=== PATIENT | male | born 1985 | race Caucasian/White ===

== ENCOUNTER 2017-01-30 23:17 | Emergency (ER) | payer SELFPAY ==
[2017-01-30 23:46] VITALS: BP 128/71; PULSE 122; BMI 29.0
[2017-01-31] MEDS ORDERED: ACETAMINOPHEN 325 MG TABLET (FP) ONE (00:08)
[2017-01-31] MEDS ORDERED: ACETAMINOPHEN 500 MG TABLET (FP) PO ONE (00:24)
[2017-01-31] MEDS ORDERED: IBUPROFEN 600 MG TABLET (FP) PO ONE ×2 (00:39→01:11)
--- NOTE | 2017-01-31 00:45 | PDOC ---
History of Present Illness - General History Source: Patient, Old Records Exam Limitations: No Limitations - History of Present Illness Initial Comments: 01/31/17 01:12 31 year old male with no past medical history presents with coughing and fever x 4 days. Denies sick contacts or recent travels. The patient started to developing coughing with yellowish sputum. Has not taken any medications. Has had tactile fevers at home. Also complaining of sore throat. <Colin Quiroga - Last Filed: 01/31/17 01:12> - General History Source: Patient Exam Limitations: No Limitations <Mathew Meehan - Last Filed: 01/31/17 01:33> - General Chief Complaint: Cold Symptoms Stated Complaint: COLD SYMPTOMS Time Seen by Provider: 01/31/17 00:17 Past History <Colin Quiroga - Last Filed: 01/31/17 01:12> - Past Medical History Other medical history: denies - Psycho/Social/Smoking Cessation Hx Suicidal Ideation: No Smoking History: Never smoked <Mathew Meehan - Last Filed: 01/31/17 01:33> - Past Medical History Allergies/Adverse Reactions: Allergies Allergy/AdvReac Type Severity Reaction Status Date / Time No Known Allergies Allergy Verified 01/30/17 23:43 Home Medications: Ambulatory Orders Albuterol Sulfate Inhaler - [Ventolin HFA Inhaler -] 2 inh PO Q4H PRN #1 inh 09/09 Azithromycin 250 mg PO DAILY #4 tablet 01/31/17 Ibuprofen 600 mg PO Q6H PRN #20 tablet 01/31/17 Review of Systems - Review of Systems Able to Perform ROS?: Yes Comments:: 01/31/17 01:12 GENERAL/CONSTITUTIONAL: (+) fever. No chills. No weakness. HEAD, EYES, EARS, NOSE AND THROAT: No change in vision. No ear pain or discharge. No sore throat. CARDIOVASCULAR: No chest pain or shortness of breath. RESPIRATORY: (+) cough. No wheezing, or hemoptysis. GASTROINTESTINAL: No nausea, vomiting, diarrhea or constipation. GENITOURINARY: No dysuria, frequency, or change in urination. MUSCULOSKELETAL: No joint or muscle swelling or pain. No neck or back pain. SKIN: No rash NEUROLOGIC: No headache, vertigo, loss of consciousness, or change in strength/ sensation. ENDOCRINE: No increased thirst. No abnormal weight change. HEMATOLOGIC/LYMPHATIC: No anemia, easy bleeding, or history of blood clots. ALLERGIC/IMMUNOLOGIC: No hives or skin allergy. <Colin Quiroga - Last Filed: 01/31/17 01:12> *Physical Exam - Vital Signs Last Vital Signs Temp Pulse Resp BP Pulse Ox 101 F H 122 H 20 128/71 96 01/31/17 01:01 01/30/17 23:43 01/30/17 23:43 01/30/17 23:43 01/30/17 23:43 - Physical Exam Comments: 01/31/17 01:13 GENERAL: Awake, alert, and fully oriented, in no acute distress HEAD: No signs of trauma EYES: PERRLA, EOMI, sclera anicteric, conjunctiva clear ENT: Auricles normal inspection, hearing grossly normal, nares patent, oropharynx clear without exudates. Moist mucosa NECK: Normal ROM, supple, no lymphadenopathy, JVD, or masses LUNGS: Breath sounds equal, clear to auscultation bilaterally. No wheezes, and no crackles HEART: Regular rate and rhythm, normal S1 and S2, no murmurs, rubs or gallops ABDOMEN: Soft, nontender, normoactive bowel sounds. No guarding, no rebound. No masses EXTREMITIES: Normal range of motion, no edema. No clubbing or cyanosis. No cords, erythema, or tenderness NEUROLOGICAL: Cranial nerves II through XII grossly intact. Normal speech, normal gait SKIN: (+) Warm to touch, Dry, normal turgor, no rashes or lesions noted. <Colin Quiroga - Last Filed: 01/31/17 01:12> - Vital Signs Last Vital Signs Temp Pulse Resp BP Pulse Ox 102.6 F H 122 H 20 128/71 96 01/30/17 23:43 01/30/17 23:43 01/30/17 23:43 01/30/17 23:43 01/30/17 23:43 <Mathew Meehan - Last Filed: 01/31/17 01:33> ED Treatment Course - Medications Given in the ED: ED Medications Discontinued Medications Generic Name Dose Route Start Last Admin Trade Name Freq PRN Reason Stop Dose Admin Acetaminophen 975 mg 01/31/17 00:24 01/31/17 00:24 Tylenol - PO 01/31/17 00:25 975 mg NOW ONE Administration <Colin Quiroga - Last Filed: 01/31/17 01:12> - RADIOLOGY Radiology Studies Ordered: Category Date Time Status CHEST PA & LAT [RAD] Stat Radiology 01/31/17 00:04 Ordered - Medications Given in the ED: ED Medications Discontinued Medications Generic Name Dose Route Start Last Admin Trade Name Freq PRN Reason Stop Dose Admin Acetaminophen 975 mg 01/31/17 00:24 01/31/17 00:24 Tylenol - PO 01/31/17 00:25 975 mg NOW ONE Administration <Mathew Meehan - Last Filed: 01/31/17 01:33> Medical Decision Making - Medical Decision Making 01/31/17 00:39 A portion of this note was documented by scribe services under my direction. I have reviewed the details of the note, within reason, and agree with the documentation with the following case summary and management plan written by me. Patient treated in the ED. Nursing notes are reviewed and incorporated into the medical decision-making. Vital signs reviewed. Peripheral IV access obtained by the nurse, laboratory studies are drawn and sent, reviewed and interpreted by myself. Vital Signs Temp Pulse Resp BP Pulse Ox 102.6 F H 122 H 20 128/71 96 01/30/17 23:43 01/30/17 23:43 01/30/17 23:43 01/30/17 23:43 01/30/17 23:43 31 year old male with no past medical history presents with coughing and fever x 4 days. Denies sick contacts or recent travels. The patient started to developing coughing with yellowish sputum. Has not taken any medications. Has had tactile fevers at home. Also complaining of sore throat. Differential includes bronchitis, pneumonia, influenza. Oropharynx has no physical findings. I doubt strep at this time. Centaur score: 0 Otherwise, he is nontoxic appearing. Will consider azithromycin. 01/31/17 01:27 Influenza negative. Chest xray reviewed by me, pending official radiology read. No infiltrates. Will treat as bronchitis. Will prescribe azithromycin. Pt verbalizes understanding and agrees with plan. I discussed the physical exam findings, ancillary test results and final diagnoses with the patient. I answered all of the patient's questions. The patient was satisfied with the care received and felt comfortable with the discharge plan and treatment plan. The patient will call their primary care physician within 24 hours to arrange follow-up and will return to the Emergency Department with any new, persistant or worsening symptoms. <Mathew Meehan - Last Filed: 01/31/17 01:33> *DC/Admit/Observation/Transfer - Attestations Scribe Attestion: 01/31/17 01:13 Documentation prepared by Colin Quiroga, acting as medical anthropologist for Mathew Meehan MD. <Colin Quiroga - Last Filed: 01/31/17 01:12> - Discharge Dispostion Admit: No <Mathew Meehan - Last Filed: 01/31/17 01:33> Diagnosis at time of Disposition: Bronchitis - Discharge Dispostion Disposition: HOME Condition at time of disposition: Improved - Prescriptions Prescriptions: Azithromycin 250 mg PO DAILY #4 tablet Ibuprofen 600 mg PO Q6H PRN #20 tablet PRN Reason: Fever Albuterol Sulfate Inhaler - [Ventolin HFA Inhaler -] 2 inh PO Q4H PRN #1 inh PRN Reason: Cough - Patient Instructions Printed Discharge Instructions: DI for Acute Bronchitis Additional Instructions: Take 600 mg ibuprofen every 6 hours as needed for fever. Please complete the antibiotics (azithromycin) as prescribed. If needed, take 2 puffs of albuterol every 4 hours for cough. It will take several days before you get better. Print Language: [place]
[2017-01-31 01:01] VITALS: TEMP 101
[2017-01-31] MEDS ORDERED: AZITHROMYCIN 250 MG TABLET (FP) PO ONE (01:09)
[2017-01-31] MEDS ORDERED: AZITHROMYCIN 250 MG TABLET (FP) ONE (01:10)
== END 2017-01-31 01:35 | disposition home or self-care (01) ==
LOC: JER 23:17
DX: J40 Bronchitis, not specified as acute or chronic (principal)
CPT/HCPCS: 71020-TC; 87804; 99281-25

== ENCOUNTER 2023-07-14 17:05 | Inpatient (IN) | payer OTHER ==
[2023-07-14] MEDS ORDERED: ACETAMINOPHEN 1000 MG/100 ML BAG IVPB ONE (17:40)
[2023-07-14] MEDS ORDERED: ACETAMINOPHEN INJECTION 100 ML IVPB ONE (17:46)
[2023-07-14 18:32] LABS: INR 0.97 (0.83-1.09); PROTHROMBIN TIME (PATIENT) 11.3 SEC (9.7-13.0)
[2023-07-14 18:35] LABS: ACTIVATED PTT 27.8 SECONDS (25.2-36.5)
[2023-07-14 18:43] LABS: CHLORIDE 94 mmol/L (98-107); POTASSIUM 3.8 mmol/L (3.5-5.1); SODIUM 131 mmol/L (136-145)
[2023-07-14 18:45] LABS: ALBUMIN 3.6 g/dl (3.4-5.0); ANION GAP 9 MMOL/L (8-16); CO2 27 mmol/L (21-32); GLUCOSE,RANDOM 340 mg/dL (74-106)
[2023-07-14 18:48] LABS: CREATININE 0.8 mg/dL (0.55-1.3)
[2023-07-14] MEDS ORDERED: SODIUM CHLORIDE 0.9% 500 ML INFUS.BAG IV ONE (18:53)
[2023-07-14] MEDS ORDERED: morphine CARPU-JECT 4 MG/1 ML DISP.SYRIN IVPUSH ONE (18:54)
[2023-07-14] MEDS ORDERED: morphine SULFATE 4 MG/ML VIAL ONE (19:02)
[2023-07-14 19:09] LABS: LACTIC ACID 2.4 mmol/L (0.4-2.0)
[2023-07-14 19:21] LABS: BASO % 1.1 % (0-2.0); EOS % 0.2 % (0-4.5); HEMATOCRIT 40.1 % (35.4-49); HEMOGLOBIN 15.1 GM/dL (11.7-16.9); LYMPH % 6.4 % (8-40); MCHC 37.8 g/dl (32.0-35.9); MEAN CELL VOLUME 84.6 fl (80-96); MEAN PLT VOLUME 7.5 fl (7.5-11.1); MONO % 6.3 % (3.8-10.2); PLATELET COUNT 268 10^3/uL (134-434); RBC 4.74 M/mm3 (4.00-5.60); RDW 13.4 % (11.9-15.9); WHITE BLOOD COUNT 11.6 K/mm3 (4.0-10.0)
[2023-07-14 20:07] LABS: ALK PHOS 101 U/L (45-117); BLOOD UREA NITROGEN 12.9 mg/dL (7-18); TOT PROT 7.7 g/dl (6.4-8.2)
[2023-07-14 20:32] LABS: LIPASE 3983 U/L (73-393)
[2023-07-14 20:56] LABS: ANISOCYTOSIS 1+; MACROCYTOSIS 0
[2023-07-14] MEDS ORDERED: INSULIN SLIDING SCALE (NOVOLOG) 1 VIAL SQ SCH (22:00)
[2023-07-14] MEDS ORDERED: SODIUM CHLORIDE 1,000 ML IV SCH (22:00)
[2023-07-14] MEDS ORDERED: chlordiazePOXIDE HCL 25 MG CAPSULE PO PRN (22:06)
[2023-07-14] MEDS ORDERED: chlordiazePOXIDE HCL 25 MG CAPSULE ONE (23:05)
[2023-07-14] MEDS ORDERED: INSULIN (NOVOLOG) ASPART 100 UNITS/ML 10ML VIAL ONE (23:09)
[2023-07-14] MEDS: chlordiazePOXIDE HCL 25 MG CAPSULE PO SCH (23:20)
[2023-07-14 23:59] LABS: LDL CHOLESTEROL (ONLY SJRH) 107 mg/dL (5-100)
[2023-07-15 00:09] LABS: CHOLESTEROL 444 mg/dL (50-200); HDL CHOLESTEROL 37 mg/dL (40-60)
[2023-07-15] MEDS ORDERED: chlordiazePOXIDE HCL 25 MG CAPSULE ONE (03:59)
[2023-07-15] MEDS: chlordiazePOXIDE HCL 25 MG CAPSULE PO SCH (04:01)
[2023-07-15] MEDS ORDERED: LORazepam 2 MG/ML SDV VIAL IVPUSH SCH (05:15)
[2023-07-15] MEDS ORDERED: INSULIN REGULAR HUMAN 100 UNITS/ML *VIAL* (FOR IVP) IVPUSH ONE (05:20)
[2023-07-15] MEDS ORDERED: LORazepam 2 MG/ML SDV VIAL IVPUSH PRN (05:27)
[2023-07-15] MEDS ORDERED: DEXTROSE 5%-NORMAL SALINE 1,000 ML IV SCH (05:30)
[2023-07-15] MEDS ORDERED: KCL 10 MEQ IVPB 10 MEQ/100 ML INFUS.BAG IVPB SCH (06:45)
[2023-07-15] MEDS ORDERED: D5-NS + 20 MEQ KCL - 20 MEQ/1,000 ML INFUS.BAG IV SCH (06:45)
[2023-07-15] MEDS: INSULIN REGULAR 100 UNITS in SODIUM CHLORIDE 99 ML IVPB SCH ×2 (07:21→15:52)
[2023-07-15 07:37] LABS: HEMATOCRIT 39.9 % (35.4-49); MCH 30.6 pg (25.7-33.7); MCHC 35.2 g/dl (32.0-35.9); MEAN CELL VOLUME 87.1 fl (80-96); MEAN PLT VOLUME 8.1 fl (7.5-11.1); PLATELET COUNT 238 10^3/uL (134-434); RBC 4.58 M/mm3 (4.00-5.60); RDW 13.6 % (11.9-15.9); WHITE BLOOD COUNT 8.4 K/mm3 (4.0-10.0)
[2023-07-15 08:09] LABS: CHLORIDE 102 mmol/L (98-107); POTASSIUM 3.8 mmol/L (3.5-5.1); SODIUM 136 mmol/L (136-145)
[2023-07-15 08:14] LABS: ALBUMIN 2.9 g/dl (3.4-5.0); ANION GAP 10 MMOL/L (8-16); CO2 24 mmol/L (21-32); GLUCOSE,RANDOM 285 mg/dL (74-106); MAGNESIUM 1.7 mg/dL (1.8-2.4)
[2023-07-15 08:16] LABS: CREATININE 0.7 mg/dL (0.55-1.3)
[2023-07-15 08:17] LABS: PHOSPHOROUS 2.1 mg/dL (2.5-4.9)
[2023-07-15 08:18] LABS: BILIRUBIN,TOTAL 0.8 mg/dL (0.2-1)
[2023-07-15 08:19] LABS: ALK PHOS 74 U/L (45-117)
[2023-07-15] MEDS ORDERED: MAGNESIUM SULF 50% (8.12 MEQ/2 ML-1 GM VIAL) IVPB ONE (09:01)
[2023-07-15 09:09] LABS: CALCIUM 6.4 mg/dL (8.5-10.1); LIPASE 1842 U/L (73-393); TOT PROT 6.5 g/dl (6.4-8.2)
[2023-07-15] MEDS ORDERED: THIAMINE HCL 100 MG TABLET (FP) PO SCH (10:00)
[2023-07-15] MEDS ORDERED: FOLIC ACID 1 MG TABLET (FP) PO SCH (10:00)
[2023-07-15] MEDS: ENOXAPARIN NA (PORCINE) 40 MG/0.4 ML DISP.SYRIN SQ SCH (10:07)
[2023-07-15] MEDS: MUPIROCIN 2% TOPICAL OINTMENT FOR DECOLONIZATION NS SCH ×2 (10:07→21:30)
[2023-07-15] MEDS: D5-LR+20 MEQ KCL - 20 MEQ/1,000 ML INFUS.BAG IV SCH ×2 (10:59→15:34)
[2023-07-15] MEDS ORDERED: INSULIN (NOVOLOG) ASPART 100 UNITS/ML 10ML VIAL ONE (12:08)
[2023-07-15 16:47] LABS: CHLORIDE 106 mmol/L (98-107); POTASSIUM 3.7 mmol/L (3.5-5.1); SODIUM 137 mmol/L (136-145)
[2023-07-15 16:56] LABS: ANION GAP 7 MMOL/L (8-16); BLOOD UREA NITROGEN 7.2 mg/dL (7-18); CO2 25 mmol/L (21-32); GLUCOSE,RANDOM 164 mg/dL (74-106)
[2023-07-15 16:59] LABS: CREATININE 0.7 mg/dL (0.55-1.3)
[2023-07-15 17:02] LABS: CALCIUM 6.8 mg/dL (8.5-10.1)
[2023-07-15] MEDS: CHLORHEXIDINE GLUCONATE 4% CLEANSER FOR DECOLONIZATION TP SCH (21:30)
[2023-07-16] MEDS: ACETAMINOPHEN 1000 MG/100 ML BAG IVPB PRN ×3 (02:22→17:55)
[2023-07-16 03:49] LABS: POTASSIUM 3.6 mmol/L (3.5-5.1)
[2023-07-16 03:53] LABS: MAGNESIUM 1.8 mg/dL (1.8-2.4)
[2023-07-16 03:54] LABS: BLOOD UREA NITROGEN 7.1 mg/dL (7-18); CALCIUM 7.4 mg/dL (8.5-10.1)
[2023-07-16 03:55] LABS: ALBUMIN 2.5 g/dl (3.4-5.0)
[2023-07-16 03:56] LABS: CREATININE 0.8 mg/dL (0.55-1.3)
[2023-07-16 03:57] LABS: PHOSPHOROUS 1.6 mg/dL (2.5-4.9)
[2023-07-16 03:58] LABS: TOT PROT 5.8 g/dl (6.4-8.2)
[2023-07-16 04:14] LABS: EPI CELLS 14 /uL (0-25.1); HYALINE CASTS 3 /uL (0-3.1); PH,URINE 5.5 (5.0-8.0); URINE APPEARANCE CLEAR; URINE BACTERIA 7 /uL (0-1359); URINE BILIRUBIN NEGATIVE (NEGATIVE); URINE COLOR YELLOW; URINE GLUCOSE (UA) 2+ (NEGATIVE); URINE KETONE NEGATIVE (NEGATIVE); URINE LEUK ESTERASE NEGATIVE (NEGATIVE); URINE NITRITE NEGATIVE (NEGATIVE); URINE PROTEIN 2+ (NEGATIVE); URINE RBC 20 /uL (0-23.9); URINE UROBILINOGEN 0.2 mg/dL (0.2-1.0); URINE WBC 9 /uL (0-25.8)
[2023-07-16 04:20] LABS: BILIRUBIN,TOTAL 0.6 mg/dL (0.2-1)
[2023-07-16] MEDS ORDERED: chlordiazePOXIDE HCL 25 MG CAPSULE PO SCH (05:00)
[2023-07-16 06:57] LABS: BASO % 0.3 % (0-2.0); EOS % 0.4 % (0-4.5); HEMATOCRIT 40.9 % (35.4-49); HEMOGLOBIN 13.8 GM/dL (11.7-16.9); LYMPH % 26.2 % (8-40); MCH 29.8 pg (25.7-33.7); MCHC 33.7 g/dl (32.0-35.9); MEAN CELL VOLUME 88.5 fl (80-96); MEAN PLT VOLUME 8.1 fl (7.5-11.1); MONO % 6.1 % (3.8-10.2); PLATELET COUNT 211 10^3/uL (134-434); RBC 4.62 M/mm3 (4.00-5.60); RDW 13.9 % (11.9-15.9); WHITE BLOOD COUNT 6.3 K/mm3 (4.0-10.0)
[2023-07-16 07:13] LABS: POTASSIUM 3.9 mmol/L (3.5-5.1)
[2023-07-16 07:22] LABS: CALCIUM 7.6 mg/dL (8.5-10.1)
[2023-07-16 07:23] LABS: BLOOD UREA NITROGEN 7.2 mg/dL (7-18); INR 1.12 (0.83-1.09)
[2023-07-16 07:24] LABS: ACTIVATED PTT 27.3 SECONDS (25.2-36.5)
[2023-07-16 07:26] LABS: CREATININE 0.9 mg/dL (0.55-1.3)
[2023-07-16 07:58] LABS: PHENCYCLIDINE,URINE NEGATIVE (NEGATIVE); URINE AMPHETAMINES NEGATIVE (NEGATIVE); URINE BARBITURATES NEGATIVE (NEGATIVE)
[2023-07-16 08:09] LABS: COCAINE, UR NEGATIVE (NEGATIVE); METHADONE, UR NEGATIVE (NEGATIVE); OPIATES, URI POSITIVE (NEGATIVE); URINE BENZODIAZEPINES POSITIVE (NEGATIVE)
[2023-07-16] MEDS: INSULIN REGULAR 100 UNITS in SODIUM CHLORIDE 99 ML IVPB SCH ×3 (08:55→21:35)
[2023-07-16] MEDS: D5-LR+20 MEQ KCL - 20 MEQ/1,000 ML INFUS.BAG IV SCH ×3 (08:56→17:05)
[2023-07-16] MEDS: THIAMINE HCL 200 MG/2 ML VIAL IVPB SCH (09:02)
[2023-07-16] MEDS: FOLIC ACID 5 MG/1 ML SQ SCH (09:03)
[2023-07-16] MEDS: ENOXAPARIN NA (PORCINE) 40 MG/0.4 ML DISP.SYRIN SQ SCH (09:03)
[2023-07-16] MEDS: MUPIROCIN 2% TOPICAL OINTMENT FOR DECOLONIZATION NS SCH ×2 (09:03→21:00)
[2023-07-16] MEDS ORDERED: POTASSIUM PHOSPHATE 30 MM in DEXTROSE 5%-WATER - 500 ML IVPB ONE (11:00)
[2023-07-16 13:37] LABS: EPI CELLS 27 /uL (0-25.1); HYALINE CASTS 0 /uL (0-3.1); PH,URINE 6.5 (5.0-8.0); URINE APPEARANCE CLEAR; URINE BACTERIA 7 /uL (0-1359); URINE BILIRUBIN NEGATIVE (NEGATIVE); URINE COLOR DK YELLOW; URINE GLUCOSE (UA) NEGATIVE (NEGATIVE); URINE KETONE NEGATIVE (NEGATIVE); URINE LEUK ESTERASE NEGATIVE (NEGATIVE); URINE NITRITE NEGATIVE (NEGATIVE); URINE PROTEIN 2+ (NEGATIVE); URINE RBC 25 /uL (0-23.9); URINE UROBILINOGEN 4.0 E.U/dl mg/dL (0.2-1.0); URINE WBC 10 /uL (0-25.8)
[2023-07-16] MEDS ORDERED: DEXTROSE 50%-WATER 25 GM/50 ML DISP.SYRIN ONE ×3 (14:02→21:05)
[2023-07-16] MEDS: DEXTROSE 50%-WATER - 25 GM/50 ML VIAL IVPUSH PRN ×3 (14:03→21:15)
[2023-07-16 14:33] LABS: POTASSIUM 3.9 mmol/L (3.5-5.1)
[2023-07-16 14:39] LABS: CALCIUM 8.1 mg/dL (8.5-10.1)
[2023-07-16 14:40] LABS: BLOOD UREA NITROGEN 5.2 mg/dL (7-18)
[2023-07-16] MEDS ORDERED: MEROPENEM 1 GM in DEXTROSE 5%-WATER 100 ML IVPB SCH (14:45)
[2023-07-16 14:54] LABS: CREATININE 0.7 mg/dL (0.55-1.3)
[2023-07-16] MEDS: MEROPENEM 1 GM in DEXTROSE 5%-WATER 100 ML IVPB SCH (17:05)
[2023-07-16 18:23] LABS: POTASSIUM 3.7 mmol/L (3.5-5.1)
[2023-07-16 18:25] LABS: CALCIUM 8.3 mg/dL (8.5-10.1)
[2023-07-16 18:26] LABS: BLOOD UREA NITROGEN 4.7 mg/dL (7-18)
[2023-07-16 18:29] LABS: CREATININE 0.8 mg/dL (0.55-1.3)
[2023-07-16] MEDS: CHLORHEXIDINE GLUCONATE 4% CLEANSER FOR DECOLONIZATION TP SCH (21:00)
[2023-07-17] MEDS ORDERED: chlordiazePOXIDE HCL 10 MG CAPSULE PO PRN
[2023-07-17] MEDS ORDERED: DEXTROSE 50%-WATER 25 GM/50 ML DISP.SYRIN ONE (00:03)
[2023-07-17] MEDS: DEXTROSE 50%-WATER - 25 GM/50 ML VIAL IVPUSH PRN ×2 (00:04→05:45)
[2023-07-17] MEDS: MEROPENEM 1 GM in DEXTROSE 5%-WATER 100 ML IVPB SCH ×2 (02:50→09:04)
[2023-07-17] MEDS ORDERED: chlordiazePOXIDE HCL 10 MG CAPSULE PO SCH (05:00)
[2023-07-17 07:32] LABS: BASO % 0.8 % (0-2.0); EOS % 1.6 % (0-4.5); HEMATOCRIT 34.8 % (35.4-49); HEMOGLOBIN 11.6 GM/dL (11.7-16.9); LYMPH % 19.4 % (8-40); MCH 29.5 pg (25.7-33.7); MCHC 33.4 g/dl (32.0-35.9); MEAN CELL VOLUME 88.2 fl (80-96); MEAN PLT VOLUME 7.6 fl (7.5-11.1); MONO % 7.3 % (3.8-10.2); NEUT % 70.9 % (42.8-82.8); PLATELET COUNT 205 10^3/uL (134-434); RBC 3.95 M/mm3 (4.00-5.60); RDW 13.5 % (11.9-15.9)
[2023-07-17 07:58] LABS: POTASSIUM 3.5 mmol/L (3.5-5.1)
[2023-07-17 08:13] LABS: ALBUMIN 2.4 g/dl (3.4-5.0); CALCIUM 8.4 mg/dL (8.5-10.1)
[2023-07-17 08:14] LABS: BLOOD UREA NITROGEN 3.8 mg/dL (7-18); MAGNESIUM 1.9 mg/dL (1.8-2.4)
[2023-07-17 08:16] LABS: BILIRUBIN,TOTAL 0.7 mg/dL (0.2-1); CREATININE 0.8 mg/dL (0.55-1.3); PHOSPHOROUS 2.6 mg/dL (2.5-4.9)
[2023-07-17] MEDS ORDERED: DEXTROSE 50%-WATER - 25 GM/50 ML VIAL IVPUSH PRN (08:44)
[2023-07-17] MEDS: ENOXAPARIN NA (PORCINE) 40 MG/0.4 ML DISP.SYRIN SQ SCH (09:04)
[2023-07-17] MEDS: THIAMINE HCL 200 MG/2 ML VIAL IVPB SCH (09:07)
[2023-07-17] MEDS: FOLIC ACID 5 MG/1 ML SQ SCH (09:08)
[2023-07-17] MEDS: D5-LR+20 MEQ KCL - 20 MEQ/1,000 ML INFUS.BAG IV SCH ×2 (09:09→19:50)
[2023-07-17] MEDS: MUPIROCIN 2% TOPICAL OINTMENT FOR DECOLONIZATION NS SCH ×2 (09:10→21:25)
[2023-07-17] MEDS ORDERED: DEXTROSE 50%-WATER 25 GM/50 ML DISP.SYRIN IVPUSH PRN (09:49)
[2023-07-17] MEDS: FENOFIBRIC ACID 135 MG CAP PO SCH (11:51)
[2023-07-17] MEDS: INSULIN REGULAR 100 UNITS in SODIUM CHLORIDE 99 ML IVPB SCH (11:52)
[2023-07-17] MEDS ORDERED: POLYETHYLENE GLYCOL (HEALTHYLAX) 3350 17 GM PACKET PO ONE (12:30)
[2023-07-17 12:40] LABS: HIV INTERPRETATION NEGATIVE (NEGATIVE)
[2023-07-17] MEDS ORDERED: ACETAMINOPHEN 1000 MG/100 ML BAG IVPB PRN (14:23)
[2023-07-17] MEDS: PIPERACILLIN/TAZOB 4.5 GM 4.5 GM in DEXTROSE 5%-WATER 100 ML IVPB SCH (17:25)
[2023-07-17] MEDS: CHLORHEXIDINE GLUCONATE 4% CLEANSER FOR DECOLONIZATION TP SCH (21:25)
[2023-07-18] MEDS: PIPERACILLIN/TAZOB 4.5 GM 4.5 GM in DEXTROSE 5%-WATER 100 ML IVPB SCH ×3 (02:04→17:49)
[2023-07-18] MEDS: INSULIN REGULAR 100 UNITS in SODIUM CHLORIDE 99 ML IVPB SCH ×2 (02:09→15:12)
[2023-07-18] MEDS: D5-LR+20 MEQ KCL - 20 MEQ/1,000 ML INFUS.BAG IV SCH (04:20)
[2023-07-18] MEDS ORDERED: chlordiazePOXIDE HCL 10 MG CAPSULE PO SCH (05:00)
[2023-07-18 07:09] LABS: BASO % 0.5 % (0-2.0); EOS % 4.4 % (0-4.5); HEMATOCRIT 32.4 % (35.4-49); HEMOGLOBIN 11.1 GM/dL (11.7-16.9); LYMPH % 21.5 % (8-40); MCH 29.5 pg (25.7-33.7); MCHC 34.2 g/dl (32.0-35.9); MEAN CELL VOLUME 86.3 fl (80-96); MEAN PLT VOLUME 7.1 fl (7.5-11.1); MONO % 7.4 % (3.8-10.2); NEUT % 66.2 % (42.8-82.8); PLATELET COUNT 229 10^3/uL (134-434); RBC 3.75 M/mm3 (4.00-5.60); RDW 13.4 % (11.9-15.9); WHITE BLOOD COUNT 6.5 K/mm3 (4.0-10.0)
[2023-07-18 07:19] LABS: POTASSIUM 3.4 mmol/L (3.5-5.1)
[2023-07-18 07:26] LABS: ALBUMIN 2.5 g/dl (3.4-5.0); BLOOD UREA NITROGEN 4.8 mg/dL (7-18); CALCIUM 8.4 mg/dL (8.5-10.1)
[2023-07-18 07:28] LABS: CREATININE 0.8 mg/dL (0.55-1.3)
[2023-07-18 07:29] LABS: PHOSPHOROUS 3.2 mg/dL (2.5-4.9)
[2023-07-18 07:30] LABS: BILIRUBIN,TOTAL 0.5 mg/dL (0.2-1); TOT PROT 6.2 g/dl (6.4-8.2)
[2023-07-18] MEDS ORDERED: INSULIN REGULAR 100 UNITS in SODIUM CHLORIDE 99 ML IVPB SCH (08:15)
[2023-07-18] MEDS: KCL 10 MEQ IVPB 10 MEQ/100 ML INFUS.BAG IVPB SCH ×3 (08:30→11:00)
[2023-07-18] MEDS: FENOFIBRIC ACID 135 MG CAP PO SCH (09:50)
[2023-07-18] MEDS: ENOXAPARIN NA (PORCINE) 40 MG/0.4 ML DISP.SYRIN SQ SCH (09:50)
[2023-07-18] MEDS: FOLIC ACID 5 MG/1 ML SQ SCH (09:54)
[2023-07-18] MEDS: THIAMINE HCL 200 MG/2 ML VIAL IVPB SCH (09:54)
[2023-07-18] MEDS ORDERED: D5-LR+20 MEQ KCL - 20 MEQ/1,000 ML INFUS.BAG IV SCH (10:05)
[2023-07-18] MEDS ORDERED: LACTATED RINGERS SOLUTION 1,000 ML/1,000 ML INFUS.BAG IV SCH ×2 (10:15→10:47)
[2023-07-18] MEDS ORDERED: DEXTROSE 50%-WATER 25 GM/50 ML DISP.SYRIN IVPUSH PRN (10:47)
[2023-07-18] MEDS ORDERED: ACETAMINOPHEN 1000 MG/100 ML BAG IVPB PRN (10:47)
[2023-07-18] MEDS ORDERED: KCL 10 MEQ IVPB 10 MEQ/100 ML INFUS.BAG IVPB SCH (11:00)
[2023-07-18] MEDS ORDERED: LORazepam 2 MG/ML SDV VIAL IVPUSH PRN (11:00)
[2023-07-18] MEDS: MUPIROCIN 2% TOPICAL OINTMENT FOR DECOLONIZATION NS SCH (15:12)
[2023-07-18] MEDS ORDERED: ACETAMINOPHEN 500 MG TABLET (FP) PO PRN (15:38)
[2023-07-18] MEDS: INSULIN SLIDING SCALE (NOVOLOG) 1 VIAL SQ SCH ×2 (17:48→21:17)
[2023-07-18 18:11] LABS: LIPASE 549 U/L (73-393)
[2023-07-18] MEDS ORDERED: INSULIN (NOVOLOG) ASPART 100 UNITS/ML 10ML VIAL ONE (21:14)
[2023-07-19] MEDS: PIPERACILLIN/TAZOB 4.5 GM 4.5 GM in DEXTROSE 5%-WATER 100 ML IVPB SCH ×3 (01:20→17:17)
[2023-07-19] MEDS ORDERED: chlordiazePOXIDE HCL 10 MG CAPSULE PO ONE (05:00)
[2023-07-19] MEDS: INSULIN SLIDING SCALE (NOVOLOG) 1 VIAL SQ SCH ×4 (06:05→22:16)
[2023-07-19 07:11] LABS: HEMATOCRIT 35.2 % (35.4-49); HEMOGLOBIN 11.5 GM/dL (11.7-16.9); MCH 29.1 pg (25.7-33.7); MCHC 32.8 g/dl (32.0-35.9); MEAN CELL VOLUME 88.7 fl (80-96); MEAN PLT VOLUME 7.7 fl (7.5-11.1); PLATELET COUNT 251 10^3/uL (134-434); RBC 3.97 M/mm3 (4.00-5.60); RDW 13.3 % (11.9-15.9)
[2023-07-19 07:26] LABS: POTASSIUM 4.2 mmol/L (3.5-5.1)
[2023-07-19 07:30] LABS: MAGNESIUM 2.1 mg/dL (1.8-2.4)
[2023-07-19 07:31] LABS: ALBUMIN 2.6 g/dl (3.4-5.0); BLOOD UREA NITROGEN 9.5 mg/dL (7-18)
[2023-07-19 07:33] LABS: CREATININE 0.7 mg/dL (0.55-1.3)
[2023-07-19 07:34] LABS: PHOSPHOROUS 3.6 mg/dL (2.5-4.9)
[2023-07-19 07:35] LABS: TOT PROT 6.7 g/dl (6.4-8.2)
[2023-07-19 07:37] LABS: BILIRUBIN,TOTAL 0.5 mg/dL (0.2-1)
[2023-07-19] MEDS ORDERED: DEXTROSE 50%-WATER 25 GM/50 ML DISP.SYRIN IVPUSH PRN (07:39)
[2023-07-19] MEDS ORDERED: LORazepam 2 MG/ML SDV VIAL IVPUSH PRN (07:39)
[2023-07-19 08:56] LABS: ANISOCYTOSIS 0; MACROCYTOSIS 0
[2023-07-19] MEDS ORDERED: FOLIC ACID 5 MG/1 ML SQ SCH (10:00)
[2023-07-19] MEDS ORDERED: THIAMINE HCL 200 MG/2 ML VIAL IVPB SCH (10:00)
[2023-07-19] MEDS ORDERED: ENOXAPARIN NA (PORCINE) 40 MG/0.4 ML DISP.SYRIN SQ SCH (10:00)
[2023-07-19] MEDS ORDERED: FENOFIBRIC ACID 135 MG CAP PO SCH (10:00)
[2023-07-19] MEDS: FENOFIBRIC ACID 135 MG CAP PO SCH (10:42)
[2023-07-19] MEDS: ENOXAPARIN NA (PORCINE) 40 MG/0.4 ML DISP.SYRIN SQ SCH (10:42)
[2023-07-19] MEDS: THIAMINE HCL 200 MG/2 ML VIAL IVPB SCH (10:42)
[2023-07-19] MEDS: FOLIC ACID 5 MG/1 ML SQ SCH (10:46)
[2023-07-19] MEDS: LACTATED RINGERS SOLUTION 1,000 ML/1,000 ML INFUS.BAG IV SCH (10:48)
[2023-07-19] MEDS ORDERED: PIPERACILLIN/TAZOBACTAM 4.5 GM VIAL IVPB ONE (16:58)
[2023-07-20] MEDS: PIPERACILLIN/TAZOB 4.5 GM 4.5 GM in DEXTROSE 5%-WATER 100 ML IVPB SCH ×3 (01:35→17:31)
[2023-07-20] MEDS: INSULIN (LEVEMIR) 100 UNITS/ML UNITS SQ SCH (06:27)
[2023-07-20] MEDS: INSULIN SLIDING SCALE (NOVOLOG) 1 VIAL SQ SCH ×4 (06:28→22:02)
[2023-07-20] MEDS: LACTATED RINGERS SOLUTION 1,000 ML/1,000 ML INFUS.BAG IV SCH (08:49)
[2023-07-20 09:35] LABS: HEMATOCRIT 34.1 % (35.4-49); HEMOGLOBIN 11.9 GM/dL (11.7-16.9); MCH 29.8 pg (25.7-33.7); MCHC 34.9 g/dl (32.0-35.9); MEAN CELL VOLUME 85.5 fl (80-96); PLATELET COUNT 299 10^3/uL (134-434); RBC 3.98 M/mm3 (4.00-5.60); RDW 13.4 % (11.9-15.9); WHITE BLOOD COUNT 7.5 K/mm3 (4.0-10.0)
[2023-07-20] MEDS: FOLIC ACID 5 MG/1 ML SQ SCH (09:38)
[2023-07-20] MEDS: FENOFIBRIC ACID 135 MG CAP PO SCH (09:39)
[2023-07-20] MEDS: ENOXAPARIN NA (PORCINE) 40 MG/0.4 ML DISP.SYRIN SQ SCH (09:39)
[2023-07-20] MEDS: THIAMINE HCL 200 MG/2 ML VIAL IVPB SCH (09:40)
[2023-07-20 09:57] LABS: LIPASE 821 U/L (73-393)
[2023-07-20 10:02] LABS: POTASSIUM 4.2 mmol/L (3.5-5.1)
[2023-07-20 10:09] LABS: MAGNESIUM 2.4 mg/dL (1.8-2.4)
[2023-07-20 10:10] LABS: ALBUMIN 2.9 g/dl (3.4-5.0); CALCIUM 8.9 mg/dL (8.5-10.1)
[2023-07-20 10:11] LABS: CREATININE 0.7 mg/dL (0.55-1.3)
[2023-07-20 10:13] LABS: TOT PROT 7.1 g/dl (6.4-8.2)
[2023-07-20 10:14] LABS: PHOSPHOROUS 3.5 mg/dL (2.5-4.9)
[2023-07-20 10:16] LABS: BILIRUBIN,TOTAL 0.6 mg/dL (0.2-1)
[2023-07-20 10:42] LABS: ANISOCYTOSIS 0; MACROCYTOSIS 0
[2023-07-21] MEDS: LACTATED RINGERS SOLUTION 1,000 ML/1,000 ML INFUS.BAG IV SCH (02:35)
[2023-07-21] MEDS: PIPERACILLIN/TAZOB 4.5 GM 4.5 GM in DEXTROSE 5%-WATER 100 ML IVPB SCH ×3 (02:40→17:34)
[2023-07-21] MEDS: INSULIN (LEVEMIR) 100 UNITS/ML UNITS SQ SCH (06:36)
[2023-07-21] MEDS: INSULIN SLIDING SCALE (NOVOLOG) 1 VIAL SQ SCH ×4 (06:37→23:15)
[2023-07-21 06:59] VITALS: RESP 18
[2023-07-21] MEDS: FENOFIBRIC ACID 135 MG CAP PO SCH (09:53)
[2023-07-21] MEDS: ENOXAPARIN NA (PORCINE) 40 MG/0.4 ML DISP.SYRIN SQ SCH (09:54)
[2023-07-21] MEDS: FOLIC ACID 5 MG/1 ML SQ SCH (09:55)
[2023-07-21 10:54] LABS: POTASSIUM 4.3 mmol/L (3.5-5.1)
[2023-07-21 10:58] LABS: ALBUMIN 3.2 g/dl (3.4-5.0)
[2023-07-21 11:02] LABS: CREATININE 0.8 mg/dL (0.55-1.3)
[2023-07-21 11:03] LABS: BILIRUBIN,TOTAL 0.5 mg/dL (0.2-1); TOT PROT 7.8 g/dl (6.4-8.2)
[2023-07-21] MEDS: THIAMINE HCL 200 MG/2 ML VIAL IVPB SCH (11:54)
[2023-07-22] MEDS: PIPERACILLIN/TAZOB 4.5 GM 4.5 GM in DEXTROSE 5%-WATER 100 ML IVPB SCH ×3 (02:24→18:56)
[2023-07-22] MEDS: INSULIN SLIDING SCALE (NOVOLOG) 1 VIAL SQ SCH ×4 (06:28→22:23)
[2023-07-22] MEDS: INSULIN (LEVEMIR) 100 UNITS/ML UNITS SQ SCH (06:28)
[2023-07-22] MEDS: ENOXAPARIN NA (PORCINE) 40 MG/0.4 ML DISP.SYRIN SQ SCH (10:05)
[2023-07-22] MEDS: FENOFIBRIC ACID 135 MG CAP PO SCH (10:05)
[2023-07-22] MEDS: FOLIC ACID 5 MG/1 ML SQ SCH (10:06)
[2023-07-22] MEDS: THIAMINE HCL 200 MG/2 ML VIAL IVPB SCH (11:00)
[2023-07-22 11:23] LABS: HEMATOCRIT 37.6 % (35.4-49); HEMOGLOBIN 13.1 GM/dL (11.7-16.9); MCH 29.6 pg (25.7-33.7); MCHC 34.9 g/dl (32.0-35.9); MEAN CELL VOLUME 84.8 fl (80-96); MEAN PLT VOLUME 7.2 fl (7.5-11.1); PLATELET COUNT 437 10^3/uL (134-434); RBC 4.44 M/mm3 (4.00-5.60); RDW 13.5 % (11.9-15.9)
[2023-07-22 11:45] LABS: POTASSIUM 4.2 mmol/L (3.5-5.1)
[2023-07-22 11:59] LABS: MAGNESIUM 2.6 mg/dL (1.8-2.4)
[2023-07-22 12:00] LABS: CALCIUM 9.9 mg/dL (8.5-10.1)
[2023-07-22 12:01] LABS: ALBUMIN 3.4 g/dl (3.4-5.0); BLOOD UREA NITROGEN 13.8 mg/dL (7-18)
[2023-07-22 12:03] LABS: CREATININE 0.9 mg/dL (0.55-1.3)
[2023-07-22 12:04] LABS: PHOSPHOROUS 3.6 mg/dL (2.5-4.9); TOT PROT 8.2 g/dl (6.4-8.2)
[2023-07-22 12:06] LABS: BILIRUBIN,TOTAL 0.4 mg/dL (0.2-1)
[2023-07-22 14:26] VITALS: BMI 31.8
[2023-07-23] MEDS: PIPERACILLIN/TAZOB 4.5 GM 4.5 GM in DEXTROSE 5%-WATER 100 ML IVPB SCH ×2 (01:47→09:52)
[2023-07-23] MEDS: INSULIN SLIDING SCALE (NOVOLOG) 1 VIAL SQ SCH ×2 (06:36→11:56)
[2023-07-23] MEDS: INSULIN (LEVEMIR) 100 UNITS/ML UNITS SQ SCH (06:36)
[2023-07-23 09:29] LABS: HEMATOCRIT 36.4 % (35.4-49); HEMOGLOBIN 12.7 GM/dL (11.7-16.9); MEAN CELL VOLUME 85.7 fl (80-96); MEAN PLT VOLUME 7.5 fl (7.5-11.1); PLATELET COUNT 476 10^3/uL (134-434); RBC 4.24 M/mm3 (4.00-5.60); RDW 13.1 % (11.9-15.9); WHITE BLOOD COUNT 7.9 K/mm3 (4.0-10.0)
[2023-07-23] MEDS: ENOXAPARIN NA (PORCINE) 40 MG/0.4 ML DISP.SYRIN SQ SCH (09:52)
[2023-07-23] MEDS: FENOFIBRIC ACID 135 MG CAP PO SCH (09:52)
[2023-07-23] MEDS: THIAMINE HCL 200 MG/2 ML VIAL IVPB SCH (09:52)
[2023-07-23 09:53] LABS: POTASSIUM 4.5 mmol/L (3.5-5.1)
[2023-07-23 09:56] LABS: ALBUMIN 3.4 g/dl (3.4-5.0); BLOOD UREA NITROGEN 14.7 mg/dL (7-18)
[2023-07-23 09:58] LABS: CALCIUM 9.2 mg/dL (8.5-10.1)
[2023-07-23 09:59] LABS: MAGNESIUM 2.5 mg/dL (1.8-2.4); PHOSPHOROUS 3.8 mg/dL (2.5-4.9)
[2023-07-23 10:00] LABS: BILIRUBIN,TOTAL 0.4 mg/dL (0.2-1); CREATININE 0.9 mg/dL (0.55-1.3)
[2023-07-23 11:14] VITALS: BP 125/79; PULSE 74; TEMP 98.2
[2023-07-23] MEDS: FOLIC ACID 5 MG/1 ML SQ SCH (13:04)
== END 2023-07-23 13:53 | disposition home or self-care (01) | DRG 282 ==
LOC: JER 17:05 → JERBED 20:37 → JICU 07-15 06:31 → J5S 07-19 07:29
PROVIDERS: ADMIT Internal Medicine
DX: K85.90 Acute pancreatitis without necrosis or infection, unspecified (principal); E87.1 Hypo-osmolality and hyponatremia; K29.60 Other gastritis without bleeding; E78.1 Pure hyperglyceridemia; E87.20 Acidosis, unspecified; J98.11 Atelectasis; J18.9 Pneumonia, unspecified organism; K70.0 Alcoholic fatty liver; J90 Pleural effusion, not elsewhere classified; F10.10 Alcohol abuse, uncomplicated; E11.65 Type 2 diabetes mellitus with hyperglycemia; R74.01 Elevation of levels of liver transaminase levels
CPT/HCPCS: 36415; 71045-TC-FY; 74176-TC; 74177-TC; 76705-TC; 80048; 80053; 80061; 80307; 81003; 82150; 82962; 83036; 83605; 83690; 83735; 84100; 84478; 84484; 85025; 85027; 85610; 85730; 86850; 86900; 86901; 87040; 87086; 87389; 87635; 93005; 93010; 94010; 97116-GP; 97161-GP; 99285-25

== ENCOUNTER 2025-05-29 20:32 | Emergency (ER) | payer OTHER ==
[2025-05-29 20:37] VITALS: BP 133/85; PULSE 83; RESP 18; TEMP 98.1; BMI 28.0
[2025-05-29] MEDS ORDERED: MAG HYDROX/AL HYDROX/SIMETH 30 ML UNIT-DOSE CUP ONE (21:43)
[2025-05-29] MEDS ORDERED: ACETAMINOPHEN INJECTION 100 ML ONE (21:43)
[2025-05-29] MEDS ORDERED: FAMOTIDINE 20 MG/50 ML IVPB 20 MG/50 ML MG IVPB ONE (21:43)
[2025-05-29] MEDS: MAG HYDROX/AL HYDROX/SIMETH -MYLANTA- ORAL SUSPENSION PO ONE (21:55)
[2025-05-29] MEDS: SODIUM CHLORIDE 1,000 ML IV STA (21:56)
[2025-05-29] MEDS: ACETAMINOPHEN 1000 MG/100 ML BAG IVPB ONE (21:56)
[2025-05-29] MEDS: FAMOTIDINE 20 MG/50 ML IVPB 20 MG/50 ML MG IVPB ONE (22:18)
[2025-05-29 22:21] LABS: ABSOLUTE IMMATURE GRANULOCYTES 0.11 x10^3/uL (0.0-0.031); BASOPHILS # 0.04 x10^3/uL (0.01-0.08); EOSINOPHIL % 2.9 % (0.8-7.0); EOSINOPHILS # 0.19 x10^3/uL (0.04-0.54); MCHC 34.2 g/dl (32.3-36.5); MEAN CELL VOLUME 84.3 fl (79.0-92.2); MEAN PLT VOLUME 9.3 fl (9.4-12.4); MONOCYTE # 0.43 x10^3/uL (0.30-0.82); MONOCYTE % 6.5 % (5.3-12.2); RDW 12.2 % (12.0-15.6)
[2025-05-29 22:35] LABS: INR 1.06 (0.83-1.09); PROTHROMBIN TIME (PATIENT) 11.6 SEC (9.7-13.0)
[2025-05-29 22:37] LABS: ACTIVATED PTT 30.6 SECONDS (25.2-36.5)
[2025-05-29 22:53] LABS: CO2 26.0 mmol/L (21-32); GLUCOSE,RANDOM 323.0 mg/dL (74-106)
[2025-05-29 22:56] LABS: SGOT/AST 24.0 U/L (15-37)
[2025-05-29 22:57] LABS: CREATININE 0.9 mg/dL (0.55-1.3)
[2025-05-29 22:58] LABS: TOT PROT 7.2 g/dl (6.4-8.2)
[2025-05-29 22:59] LABS: ALK PHOS 126.0 U/L (45-117)
[2025-05-29 23:04] LABS: SGPT/ALT 54.0 U/L (13-61)
[2025-05-29 23:06] LABS: URINE APPEARANCE CLEAR; URINE BILIRUBIN NEGATIVE (NEGATIVE); URINE COLOR YELLOW; URINE GLUCOSE (UA) 3+ (NEGATIVE); URINE KETONE NEGATIVE (NEGATIVE); URINE LEUK ESTERASE NEGATIVE (NEGATIVE); URINE NITRITE NEGATIVE (NEGATIVE); URINE PROTEIN NEGATIVE (NEGATIVE); URINE UROBILINOGEN 0.2 mg/dL (0.2-1.0)
[2025-05-29 23:50] LABS: HCV DIAGNOSTIC IN-HOUSE W/RFLX NON-REACTIVE (NONREACTIVE)
[2025-05-29 23:51] LABS: HIV INTERPRETATION NEGATIVE (NEGATIVE)
== END 2025-05-30 00:01 | disposition home or self-care (01) ==
LOC: JER 20:32
PROC: 3E033GC Introduction of Other Therapeutic Substance into Peripheral Vein, Percutaneous Approach (ICD-10-PCS; principal; 2025-05-29)
PROC: 3E033NZ Introduction of Analgesics, Hypnotics, Sedatives into Peripheral Vein, Percutaneous Approach (ICD-10-PCS; 2025-05-29)
DX: E11.65 Type 2 diabetes mellitus with hyperglycemia (principal); R10.11 Right upper quadrant pain
CPT/HCPCS: 36415; 76705-TC; 80053; 81003; 83690; 85025; 85610; 85730; 86803; 87086; 87389; 99285-25